=== PATIENT | male | born 1960 | race Caucasian/White ===

== ENCOUNTER 2018-03-29 19:40 | Inpatient (IN) | payer OTHER, SELFPAY ==
[2018-03-29 20:10] VITALS: BP 100/76; PULSE 83; RESP 17; TEMP 36.7; O2SAT 94; BMI 31.7; BMI 31.8
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
--- NOTE | 2018-03-29 21:35 | NURSING ---
RN talked with Lala several times as they claim they are trying to fax the packet to . Fax number was confirmed. Nothing is coming through and Suly, from [facility], is going to another floor to try to refax packet to us.
--- NOTE | 2018-03-29 21:39 | NURSING ---
Dr Gracia paged and gave orders
[2018-03-29 22:00] VITALS: BP 108/72; PULSE 80; RESP 16; TEMP 36.7; O2SAT 95
[2018-03-29] MEDS: oxyCODONE 5 MG Tablet 10 MG PO (23:39)
[2018-03-29] MEDS: MELATONIN 10 MG TABLET PO (23:54)
[2018-03-30] MEDS: oxyCODONE 5 MG Tablet 10 MG PO ×2 (06:20→15:47)
[2018-03-30 07:02] VITALS: O2SAT 95
[2018-03-30 07:17] LABS: Hematocrit 29.5 % (40-54); Hemoglobin 9.1 g/dl (13.0-16.5); Mean Corp Hgb Conc 30.8 g/gl (32-36); Mean Corpuscular Hgb 27.8 pg (27.0-32.0); Mean Corpuscular Volume 90.2 fL (80-94); Mean Platelet Vol. 8.2 fl (6.2-12.0); Platelet Count 578 K/mm3 (150-450); RBC Distribution Width SD 48.2 fl (35.1-43.9); Red Blood Count 3.27 M/mm3 (4.6-6.2); White Blood Count 5.5 K/mm3 (4.4-11.0)
[2018-03-30 07:18] LABS: Anion Gap 11 (5-15); BUN 13 mg/dL (7-18); BUN/Creat Ratio 13.1 RATIO (10-20); Chloride 104 mmol/L (98-107); EST Glomerular Filtration Rate 82 mL/min (>60); Est Glom Filt Rate - Afr Amer 99 mL/min (>60); Estimated Creatinine Clearance 92.11 ml/min; Glucose 98 mg/dL (74-106); Potassium 4.2 mmol/L (3.5-5.1); Sodium Level 140 mmol/L (136-145)
[2018-03-30 07:30] LABS: Scan Indicated on CBC? Y/N NO
[2018-03-30] MEDS: Multivitamins,Ther W-Minerals Tablet 1 TABLET PO (07:52)
[2018-03-30] MEDS: Calcium Carb/Vitamin D 1 TABLET Tablet PO (07:52)
[2018-03-30] MEDS: Atenolol 50 MG Tablet PO (07:52)
[2018-03-30] MEDS: Senna/Docusate Sodium 1 Tablet 2 TABLET PO (07:52)
[2018-03-30] MEDS: Enoxaparin 40 MG/0.4 ML Syringe SC (07:53)
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
[2018-03-30 10:00] VITALS: BP 119/70; PULSE 73; RESP 16; TEMP 36.8; O2SAT 97
--- NOTE | 2018-03-30 11:00 | NURSING ---
This nurse spoke to and called Infectious Disease [employer] and [facility] Doctors offices and delayed appts until patient is discharged due to difficulty getting patient to them.
--- NOTE | 2018-03-30 12:00 | NURSING ---
Called Dr Hurtado's office to see if sutures can come out of right leg other than to stump due to areas red and patient reports the sutures have been in for weeks. Will await call back.
--- NOTE | 2018-03-30 12:42 | NURSING ---
wound photo: right below the knee amputation incisions
--- NOTE | 2018-03-30 12:45 | NURSING ---
wound photo: right knee /lower leg incisions
--- NOTE | 2018-03-30 13:18 | REHABEVAL_ITS ---
Admission Information Status Changes from Prescreening?: No changes Identified Actual Problem List:: Infection, Skin Intergrity, Pain, ALteration in Cmfrt, Alteration in Sleep, Alteration in Nutrition, Mobility Impaired, Self Care Deficit, BP, Hypertension, Ineffect.D/C Plan r/t Psy Potential Problem List:: DVT, Bleeding, Infection, UTI, Aspiration, Falls, Skin Integrity, Depression Risk of Complications DVT: LMWH, YUE Hose, Sequential Compression Device Bleeding: Monitor Lab Values, Nursing to Teach Precautions for anti-coagulation therapy., Wound, if applicable, to be assessed every shift., Stroke patients assessed for lethargy or change in status. Infection: Clinical Staff to Monitor for S/S of infection:, S/S of infection include fever, redness, warmth, etc. Urinary Tract Infection: Monitor for frequency, burning, discomfort, or incontinence., Nursing will obtain urine sample for urinalysis and C&S when ordered. Aspiration: Clinical staff will monitor for coughing, drooling, congestion., Speech will evaluate swallowing and dsyphasia., Nursing will monitor patient swallowing during meals. Falls: Patient will be evaluated for Fall Precautions, Patient will be placed on Fall Precautions as indicated per protocol. Skin Breakdown: Nursing will assess skin daily using assessment tool., Nursing will place on Skin Breakdown Precautions as indicated. Pain: Clinical staff will assess patient's pain level per protocol., Medications will be given, if needed, and the pain level reassessed., Other methods: Massage, distraction, decrease stimulus, etc. used PRN. Plan of Care Patient requires physician specializing in physical medicine and rehab oversight to provide close medical supervision of rehab issues including: Pain Management, Sleep Problems, Bowel and Bladder, Medical and co-morbidity Management, DVT prophylaxis, Rehabilitation Leadership, Coordination of treatment team Patient needs Physical Therapy: For a minimum of 1 hour, At least 5 out of 7 days Patient needs Physical Therapy to improve:: Mobility, Mobility, Mobility, Strengthening, Transfers, Stretching, ROM, Endurance, Stairs, Gait, Balance Patient needs Occupational Therapy: For a minimum of 1 hour, At least 5 out of 7 days Patient needs Occupational Therapy to improve ADL's incl.: Eating, Grooming, Bathing, Dressing, Toileting, Toilet transfers, Community Reintegration, Higher functioning activities, Household tasks, Adaptive Equipment, Splinting, Other activities as determined Patient requires 22/12 Rehabilitation Nursing for: Pain Issues, Identifying and preventing risk factors, Monitoring and reporting current medical conditions, Assisting with ambulation, transfer, and all ADL's, Teaching patients about disease process and medications, Family teaching, Providing safe environment, Bowel and Bladder Issues, Skin integrity, Medication Management Patient needs Lockstitch Shoulder Joiner/ Case Management for: Discharge Planning, Arranging Home Equipment or Services, Family Interventions Patient needs Dietary and Nutrition Services for: Adequate Nutrition, Nutritional Supplements, Nutritional Education Goals Patient will remain: free from falls, or injury at time of discharge. Patient will perform bed mobility at: MOD I level of assist. Patient will complete transfers from bed to chair at: MOD I level of assist. Patient will ambulate: 100 feet, with MOD I assist, with LRD Patient will complete upper body dressing at: MOD I level of assist. Patient will complete lower body dressing at: MOD I level of assist. Patient will complete toileting at: MOD I level of assist. Patient will perform bathing at: MOD I level of assist. Patient will complete grooming at: MOD I level of assist. Patient will complete home management skills at: MOD I level of assist. Patient will achieve: 12 stairs, at MOD I assist Patient will have pain level of: of 3 or less Patient's skin will: remain intact, free from infection. Patient will receive: adequate nutrition. Discharge Planning Pt Prognosis for Sig. Practical Improv. w/in Reasonable Time: Good Anticipated D/C Destination: Home with Outpt Therapy Was Preadmission Assessment Accurate?: Yes
[2018-03-30] MEDS: fentaNYL 25 MCG Patch TRANSDERM. (17:47)
[2018-03-30 20:40] VITALS: BP 134/77; PULSE 79; RESP 16; TEMP 37.2; O2SAT 94
--- NOTE | 2018-03-31 03:19 | NURSING ---
Reviewed and agree with [employer] documentation and FIMs charting.
[2018-03-31] MEDS: oxyCODONE 5 MG Tablet 10 MG PO ×4 (04:14→18:13)
[2018-03-31] MEDS: Calcium Carb/Vitamin D 1 TABLET Tablet PO (07:32)
[2018-03-31] MEDS: Atenolol 50 MG Tablet PO (07:32)
[2018-03-31] MEDS: Multivitamins,Ther W-Minerals Tablet 1 TABLET PO (07:32)
[2018-03-31] MEDS: Enoxaparin 40 MG/0.4 ML Syringe SC (07:32)
[2018-03-31 07:39] VITALS: BP 138/93; PULSE 86; RESP 18; TEMP 36.6; O2SAT 95
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
[2018-03-31] MEDS: Acetaminophen 500 MG Tablet 1000 MG PO ×2 (13:42→20:11)
[2018-03-31 19:00] VITALS: O2SAT 95
[2018-03-31 20:00] VITALS: BP 118/71; PULSE 76; RESP 16; TEMP 36.7; O2SAT 96
[2018-03-31] MEDS: Nystatin Powder 15gm Bottle 1 APPLIC TOPICAL (20:13)
[2018-03-31] MEDS: MELATONIN 10 MG TABLET PO (21:39)
[2018-04-01] MEDS: oxyCODONE 5 MG Tablet 10 MG PO ×5 (01:43→20:56)
--- NOTE | 2018-04-01 02:55 | NURSING ---
REVIEWED AND AGREE WITH FIM AND HANDOFF CHARTING.
[2018-04-01] MEDS: Acetaminophen 500 MG Tablet 1000 MG PO ×3 (05:18→21:12)
[2018-04-01] MEDS: Enoxaparin 40 MG/0.4 ML Syringe SC (05:19)
[2018-04-01] MEDS: Nystatin Powder 15gm Bottle 1 APPLIC TOPICAL ×2 (05:20→20:56)
[2018-04-01 06:30] VITALS: O2SAT 96
[2018-04-01 07:21] VITALS: BP 125/78; PULSE 76; RESP 16; TEMP 36.5; O2SAT 97
[2018-04-01] MEDS: Calcium Carb/Vitamin D 1 TABLET Tablet PO (07:48)
[2018-04-01] MEDS: Multivitamins,Ther W-Minerals Tablet 1 TABLET PO (07:48)
[2018-04-01] MEDS: Atenolol 50 MG Tablet PO (07:48)
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
--- NOTE | 2018-04-01 11:25 | NURSING ---
Wound culture obtained from mid incisional area to right leg stump. area continues to drain light green drainage. mild redness and edema to incision sites noted. sutures intact.
--- NOTE | 2018-04-01 11:34 | CASEMGMT ---
Team meeting held. Patient present as well as patient spouse. No discharge date set at this time. Recommending continued therapy on the Inpatient Rehab Unit. Patient with insurance update due on 04/02/18 and aware that continued stay approval is not guaranteed. Patient plans to discharge to home with spouse. At this time patient would requires a bedside commode, wheelchair with elevating leg rest, and walker. Support given. Plan is to re-team patient next week pending insurance approval. SEN AdairW, SOCIAL DIRECTOR
[2018-04-01 20:49] VITALS: BP 132/68; PULSE 81; RESP 16; TEMP 36.8; O2SAT 94
[2018-04-02] MEDS: oxyCODONE 5 MG Tablet 10 MG PO ×4 (04:52→23:44)
[2018-04-02] MEDS: Acetaminophen 500 MG Tablet 1000 MG PO ×3 (06:26→21:28)
[2018-04-02] MEDS: Enoxaparin 40 MG/0.4 ML Syringe SC (06:27)
[2018-04-02] MEDS: Nystatin Powder 15gm Bottle 1 APPLIC TOPICAL ×2 (06:27→21:29)
[2018-04-02 07:47] VITALS: BP 124/78; PULSE 86; RESP 16; TEMP 36.8; O2SAT 96
[2018-04-02] MEDS: Atenolol 50 MG Tablet PO (10:09)
[2018-04-02] MEDS: Multivitamins,Ther W-Minerals Tablet 1 TABLET PO (10:10)
[2018-04-02] MEDS: Calcium Carb/Vitamin D 1 TABLET Tablet PO (10:13)
[2018-04-02] MEDS: Senna/Docusate Sodium 1 Tablet 2 TABLET PO (10:14)
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
--- NOTE | 2018-04-02 12:06 | CASEMGMT ---
Insurance Clinical information faxed. Pending continued stay approval at this time. Auth#[id number] MEGAN Adair, DRIER TAKE OFF TENDER
--- NOTE | 2018-04-02 14:35 | CT_ITS ---
STUDY: CT RIGHT KNEE WITHOUT CONTRAST REASON FOR EXAM: Male, 57 years old. Right BKA. Redness and drainage. RADIATION DOSAGE (If Supplied By Facility): CTDIvol = ( 15.35 ) mGy, DLP = ( 852.67 ) mGycm TECHNIQUE: Transaxial CT imaging of the knee was performed. Coronal and sagittal images were reformatted. Individualized dose optimization techniques were used for this CT. COMPARISON: None. FINDINGS: There is a metallic plate and screws along the lateral aspect of the femoral shaft. There is a comminuted fracture of a distal femoral shaft extending into the intercondylar notch. Further extension of the condyles cannot be ruled out due to marked streak artifact from multiple metallic screws. There is a cystic focus in the posterior aspect of the lateral femoral condyle which may represent a cyst or an focus of osteomyelitis. The proximal tibia appears intact. There is a tunnel extending from the anterior tibial plateau angling posteriorly through the shaft. There are multiple crossing lucencies suggesting the root of the prior medullary brittany. There is evidence of a BKA with marked sclerosis of the surrounding bone and calcifications within the surrounding soft tissues. There is no evidence of bony disruption to suggest osteomyelitis. The distal tibial fragment appears intact and without evidence of destructive bone changes. There is moderate to marked arthrosis of the patellofemoral joint. The patella appears intact. No obvious joint effusion. The surrounding musculature appears grossly normal however streak artifact limits evaluation of the lower thigh. There is evidence of soft tissue edema over the lateral aspect of the lower leg and knee. The soft tissues adjacent to the inferior aspect of the tibia are somewhat indistinct. There appears to be a abscess with enhancing goodwin along the post coronal lateral aspect of the calf which extends to the skin surface. This is best seen on image [address]/Extremity Lower WITH Contrast IMPRESSION: 1. Evidence of BKA. There is associated soft tissue swelling with what appears to be a small abscess extending to posterolateral skin surface. 2. Comminuted fracture of the distal femur with metallic plate and screws. 3. Diffuse soft tissue swelling of the lower leg. Electronically Signed: Edward Goldberg DO at 18:01 EDT Tel [phone], Service support ,
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
--- NOTE | 2018-04-02 14:56 | CASEMGMT ---
Insurance Continued stay approved with next update due on 04/09/18. Auth#[id number] MEGAN [employer], [employer]
[2018-04-02] MEDS: fentaNYL 25 MCG Patch TRANSDERM. (17:48)
--- NOTE | 2018-04-02 18:25 | NURSING ---
Young ID tel. stated that he is aware of results from CT, this RN reviewed with doctor what plan of actions is for pt in regards to results. NNO's monitor pt.
[2018-04-02 21:23] VITALS: BP 147/82; PULSE 86; RESP 18; TEMP 36.6; O2SAT 94
[2018-04-03] MEDS: Nystatin Powder 15gm Bottle 1 APPLIC TOPICAL ×2 (06:13→20:51)
[2018-04-03] MEDS: Acetaminophen 500 MG Tablet 1000 MG PO ×3 (06:13→23:16)
[2018-04-03] MEDS: Enoxaparin 40 MG/0.4 ML Syringe SC (06:13)
[2018-04-03] MEDS: oxyCODONE 5 MG Tablet 10 MG PO ×3 (06:21→20:59)
[2018-04-03] MEDS: 0.9% NaCl Peripheral Flush Adult/Peds IV ×5 (06:59→21:47)
[2018-04-03 07:33] VITALS: BP 135/90; PULSE 91; RESP 17; TEMP 36.9; O2SAT 95
[2018-04-03] MEDS: Calcium Carb/Vitamin D 1 TABLET Tablet PO (08:03)
[2018-04-03] MEDS: Escitalopram Oxalate 20 MG Tablet PO (08:03)
[2018-04-03] MEDS: Multivitamins,Ther W-Minerals Tablet 1 TABLET PO (08:03)
[2018-04-03] MEDS: Atenolol 50 MG Tablet PO (08:03)
[2018-04-03 08:45] LABS: Absolute Lymphocyte Count 1.11 X10^3/ul (0.83-4.51); Absolute Neutrophil Count 2.8 X10^3/uL (2.0-7.7); Basophil# 0.07 X10^3/uL; Basophil% 1.5 % (0-1); Eosinophil# 0.11 X10^3/uL; Eosinophils% 2.4 % (0-5); Hematocrit 33.6 % (40-54); Hemoglobin 10.8 g/dl (13.0-16.5); Lymphocyte # 1.11 X10^3/ul (4.0); Lymphocyte % 23.9 % (19-41); Mean Corp Hgb Conc 32.1 g/gl (32-36); Mean Corpuscular Hgb 27.6 pg (27.0-32.0); Mean Corpuscular Volume 85.9 fL (80-94); Mean Platelet Vol. 9.5 fl (6.2-12.0); Monocyte# 0.53 X10^3/uL; Monocyte% 11.4 % (0-10); Neutrophil % 60.4 % (47-70); Platelet Count 227 K/mm3 (150-450); RBC Distribution Width CV 15.4 % (11.6-14.6); RBC Distribution Width SD 47.7 fl (35.1-43.9); Red Blood Count 3.91 M/mm3 (4.6-6.2); White Blood Count 4.6 K/mm3 (4.4-11.0)
[2018-04-03 08:46] LABS: POSITIVE COUNT NO; POSITIVE DIFFERENTIAL NO; POSITIVE MORPHOLOGY NO
[2018-04-03 20:00] VITALS: BP 133/81; PULSE 71; RESP 16; TEMP 37.2; O2SAT 96
[2018-04-03] MEDS: Senna/Docusate Sodium 1 Tablet 2 TABLET PO (20:50)
[2018-04-03 22:00] VITALS: PULSE 77; RESP 16; O2SAT 96
[2018-04-04] MEDS: oxyCODONE 5 MG Tablet 10 MG PO ×5 (05:15→22:04)
[2018-04-04] MEDS: 0.9% NaCl Peripheral Flush Adult/Peds IV ×5 (05:16→22:05)
[2018-04-04] MEDS: Enoxaparin 40 MG/0.4 ML Syringe SC (05:16)
[2018-04-04] MEDS: Nystatin Powder 15gm Bottle 1 APPLIC TOPICAL ×2 (05:36→21:07)
[2018-04-04 06:50] LABS: Absolute Lymphocyte Count 1.12 X10^3/ul (0.83-4.51); Absolute Neutrophil Count 2.8 X10^3/uL (2.0-7.7); Basophil% 2.2 % (0-1); Eosinophil# 0.17 X10^3/uL; Eosinophils% 3.7 % (0-5); Hematocrit 33.8 % (40-54); Hemoglobin 10.5 g/dl (13.0-16.5); Lymphocyte # 1.12 X10^3/ul (4.0); Lymphocyte % 24.3 % (19-41); Mean Corp Hgb Conc 31.1 g/gl (32-36); Mean Corpuscular Hgb 27.6 pg (27.0-32.0); Mean Corpuscular Volume 88.9 fL (80-94); Mean Platelet Vol. 8.2 fl (6.2-12.0); Monocyte% 8.7 % (0-10); Neutrophil % 60.7 % (47-70); Platelet Count 495 K/mm3 (150-450); RBC Distribution Width CV 15.3 % (11.6-14.6); RBC Distribution Width SD 49.2 fl (35.1-43.9); White Blood Count 4.6 K/mm3 (4.4-11.0)
[2018-04-04 06:52] LABS: POSITIVE COUNT NO; POSITIVE DIFFERENTIAL NO; POSITIVE MORPHOLOGY NO
[2018-04-04] MEDS: Acetaminophen 500 MG Tablet 1000 MG PO ×3 (06:54→21:08)
[2018-04-04 07:09] VITALS: BP 144/84; PULSE 84; RESP 16; TEMP 36.6; O2SAT 92
[2018-04-04] MEDS: Escitalopram Oxalate 20 MG Tablet PO (08:11)
[2018-04-04] MEDS: Atenolol 50 MG Tablet PO (08:11)
[2018-04-04] MEDS: Calcium Carb/Vitamin D 1 TABLET Tablet PO (08:11)
[2018-04-04] MEDS: Multivitamins,Ther W-Minerals Tablet 1 TABLET PO (08:12)
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
[2018-04-04 19:54] VITALS: BP 129/66; PULSE 83; RESP 16; TEMP 36.8; O2SAT 95
[2018-04-05] MEDS: oxyCODONE 5 MG Tablet 10 MG PO ×2 (04:43→09:24)
[2018-04-05] MEDS: Nystatin Powder 15gm Bottle 1 APPLIC TOPICAL ×2 (04:47→22:23)
[2018-04-05] MEDS: 0.9% NaCl Peripheral Flush Adult/Peds IV (05:51)
[2018-04-05] MEDS: Acetaminophen 500 MG Tablet 1000 MG PO ×3 (05:51→22:22)
[2018-04-05] MEDS: Enoxaparin 40 MG/0.4 ML Syringe SC (05:52)
--- NOTE | 2018-04-05 06:23 | NURSING ---
Dressing removed, incision cleansed with soap and water. Dime sized red/brownish, dry drainage at distal end of leg. Gauze pad replaced, Kerlix and BEATRIZ wrap applied. Pt tolerated well.
[2018-04-05 06:48] LABS: Absolute Lymphocyte Count 0.88 X10^3/ul (0.83-4.51); Absolute Neutrophil Count 2.8 X10^3/uL (2.0-7.7); Basophil% 2.2 % (0-1); Eosinophil# 0.18 X10^3/uL; Hematocrit 31.5 % (40-54); Hemoglobin 9.7 g/dl (13.0-16.5); Lymphocyte # 0.88 X10^3/ul (4.0); Lymphocyte % 19.8 % (19-41); Mean Corp Hgb Conc 30.8 g/gl (32-36); Mean Corpuscular Hgb 27.5 pg (27.0-32.0); Mean Corpuscular Volume 89.2 fL (80-94); Monocyte# 0.44 X10^3/uL; Monocyte% 9.9 % (0-10); Neutrophil # 2.84 X10^3/uL (2.7-7.7); Neutrophil % 63.9 % (47-70); Platelet Count 335 K/mm3 (150-450); RBC Distribution Width CV 15.2 % (11.6-14.6); RBC Distribution Width SD 48.9 fl (35.1-43.9); Red Blood Count 3.53 M/mm3 (4.6-6.2); White Blood Count 4.5 K/mm3 (4.4-11.0)
[2018-04-05 06:55] LABS: POSITIVE COUNT NO; POSITIVE DIFFERENTIAL NO; POSITIVE MORPHOLOGY NO
[2018-04-05 07:48] VITALS: BP 149/93; PULSE 87; RESP 16; TEMP 36.6; O2SAT 96
[2018-04-05] MEDS: Calcium Carb/Vitamin D 1 TABLET Tablet PO (08:05)
[2018-04-05] MEDS: Multivitamins,Ther W-Minerals Tablet 1 TABLET PO (08:05)
[2018-04-05] MEDS: Escitalopram Oxalate 20 MG Tablet PO (08:05)
[2018-04-05] MEDS: Atenolol 50 MG Tablet PO (08:05)
[2018-04-05] MEDS: Lisinopril 5 MG Tablet 15 MG PO (10:38)
[2018-04-05] MEDS: hydroCHLOROthiazide 12.5mg 37.5 MG PO (10:38)
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
[2018-04-05] MEDS: Gabapentin 100 MG Capsule PO ×2 (13:47→17:34)
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
[2018-04-05] MEDS: fentaNYL 25 MCG Patch TRANSDERM. (17:33)
[2018-04-05 22:00] VITALS: BP 140/89; PULSE 76; RESP 16; TEMP 36.7; O2SAT 95
[2018-04-05] MEDS: Ciprofloxacin 500 MG Tablet PO (22:22)
--- NOTE | 2018-04-05 22:45 | NURSING ---
pt c/o nausea and requested zofran. Pt declined saltine crackers or soda. Hospitalist, Dr Lennon, paged. N/O for Zofran 4mg PO Q8H/PRN. Dr. Lennon called for conflict alert and override provided by Dr. Lennon.
[2018-04-05] MEDS: Ondansetron ODT 4 MG Tablet PO (23:03)
--- NOTE | 2018-04-06 04:17 | NURSING ---
Reviewed and agree with CHILD THERAPIST documentation and FIMs charting.
[2018-04-06] MEDS: oxyCODONE 5 MG Tablet 10 MG PO (06:23)
[2018-04-06] MEDS: Acetaminophen 500 MG Tablet 1000 MG PO ×3 (06:24→21:29)
[2018-04-06] MEDS: Enoxaparin 40 MG/0.4 ML Syringe SC (06:25)
[2018-04-06] MEDS: Nystatin Powder 15gm Bottle 1 APPLIC TOPICAL (06:26)
[2018-04-06] MEDS: hydroCHLOROthiazide 12.5mg 37.5 MG PO (07:43)
[2018-04-06] MEDS: Atenolol 50 MG Tablet PO (07:43)
[2018-04-06] MEDS: Gabapentin 100 MG Capsule PO ×3 (07:43→16:58)
[2018-04-06] MEDS: Calcium Carb/Vitamin D 1 TABLET Tablet PO (07:43)
[2018-04-06] MEDS: Lisinopril 5 MG Tablet 15 MG PO (07:43)
[2018-04-06] MEDS: Escitalopram Oxalate 20 MG Tablet PO (07:44)
[2018-04-06] MEDS: Multivitamins,Ther W-Minerals Tablet 1 TABLET PO (07:44)
[2018-04-06 08:06] VITALS: BP 133/68; PULSE 91; RESP 16; TEMP 36.9; O2SAT 91
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
[2018-04-06] MEDS: Ciprofloxacin 500 MG Tablet PO ×2 (10:56→21:29)
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
--- NOTE | 2018-04-06 12:01 | NURSING ---
wound photo: right stump
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
[2018-04-06 20:17] VITALS: BP 123/73; PULSE 74; RESP 18; TEMP 36.8; O2SAT 93
--- NOTE | 2018-04-07 00:33 | NURSING ---
IV discontinued. IV removed intact and pt tolerated well.
[2018-04-07] MEDS: oxyCODONE 5 MG Tablet 10 MG PO ×4 (04:44→20:13)
[2018-04-07] MEDS: Acetaminophen 500 MG Tablet 1000 MG PO ×3 (06:25→21:22)
[2018-04-07] MEDS: Enoxaparin 40 MG/0.4 ML Syringe SC (06:25)
[2018-04-07] MEDS: Nystatin Powder 15gm Bottle 1 APPLIC TOPICAL ×2 (06:30→21:23)
[2018-04-07] MEDS: Calcium Carb/Vitamin D 1 TABLET Tablet PO (08:19)
[2018-04-07] MEDS: Lisinopril 5 MG Tablet 15 MG PO (08:20)
[2018-04-07] MEDS: hydroCHLOROthiazide 12.5mg 37.5 MG PO (08:20)
[2018-04-07] MEDS: Escitalopram Oxalate 20 MG Tablet PO (08:20)
[2018-04-07] MEDS: Atenolol 50 MG Tablet PO (08:20)
[2018-04-07] MEDS: Multivitamins,Ther W-Minerals Tablet 1 TABLET PO (08:21)
[2018-04-07] MEDS: Gabapentin 100 MG Capsule PO ×3 (08:21→17:23)
[2018-04-07] MEDS: Ciprofloxacin 500 MG Tablet PO ×2 (09:32→21:23)
[2018-04-07 09:51] VITALS: BP 118/82; PULSE 93; RESP 16; TEMP 36.6; O2SAT 95
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
[2018-04-07 19:37] VITALS: BP 120/70; PULSE 78; RESP 16; TEMP 37.2; O2SAT 94
[2018-04-08] MEDS: oxyCODONE 5 MG Tablet 10 MG PO ×3 (05:51→18:07)
[2018-04-08] MEDS: Enoxaparin 40 MG/0.4 ML Syringe SC (05:52)
[2018-04-08] MEDS: Nystatin Powder 15gm Bottle 1 APPLIC TOPICAL ×2 (05:52→21:04)
[2018-04-08] MEDS: Acetaminophen 500 MG Tablet 1000 MG PO ×3 (05:52→21:03)
[2018-04-08 07:00] VITALS: BP 126/81; PULSE 79; RESP 20; TEMP 36.7; O2SAT 95
[2018-04-08] MEDS: Lisinopril 5 MG Tablet 15 MG PO (08:15)
[2018-04-08] MEDS: Multivitamins,Ther W-Minerals Tablet 1 TABLET PO (08:16)
[2018-04-08] MEDS: Atenolol 50 MG Tablet PO (08:16)
[2018-04-08] MEDS: hydroCHLOROthiazide 12.5mg 37.5 MG PO (08:16)
[2018-04-08] MEDS: Escitalopram Oxalate 20 MG Tablet PO (08:16)
[2018-04-08] MEDS: Gabapentin 100 MG Capsule PO ×3 (08:16→18:07)
[2018-04-08] MEDS: Ciprofloxacin 500 MG Tablet PO ×2 (10:14→21:04)
[2018-04-08] MEDS: Calcium Carb/Vitamin D 1 TABLET Tablet PO (10:14)
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
--- NOTE | 2018-04-08 11:46 | CASEMGMT ---
Team meeting held. Patient present as well as patient spouse. No discharge date set at this time. Patient with insurance update due on 04/09/18, patient aware that continued stay approval is not guaranteed and that patient .
--- NOTE | 2018-04-08 11:50 | CASEMGMT ---
Team meeting held. Patient present as well as patient spouse. No discharge date set at this time. Patient to continue with further care and treatment on the Inpatient Rehab Unit. Patient with insurance update due on 04/09/18 and aware that continued stay approval is not guaranteed. Patient aware that there is a possibility that patient will discharge on 04/10/18 due to discontinued coverage by insurance. Patient reporting to want to continue with stay for another 1-2 weeks. Team reporting to believe that patient is ready and able to return home. Patient wanting to continue with stay due to team working patient out well. Patient is agreeable to home health services at time of discharge for physical, occupational, and assisted. Nursing aware to start teaching with spouse on wound care. Patient requesting for home health care to be set up through [facility] ([facility]). If discharge date is set for 04/10/18, patient plans to discharge [id number] with a first floor set up and family is able to transport patient to home. Will continue to follow, pending further approval by insurance. [facility] This manager social responsibility making referral for physical, occupational, and assisted. Orders faxed. Melanie aware that no discharge date has been set at this time, will notify Melanie when discharge date is set. Patient has equipment already set up through [facility] for Bariatric standard walker, wheelchair, and bariatric bedside commode, will notify [facility] when discharge date is set in order to be able to deliver equipment. Will continue to follow. Elena Bradley, [employer]GR[employer]HER, BLUEPRINT ENGINEER
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
[2018-04-08] MEDS: fentaNYL 25 MCG Patch TRANSDERM. (18:06)
[2018-04-08 20:56] VITALS: BP 98/73; PULSE 97; RESP 18; TEMP 36.6; O2SAT 94
[2018-04-08] MEDS: Senna/Docusate Sodium 1 Tablet 2 TABLET PO (21:04)
[2018-04-09] MEDS: oxyCODONE 5 MG Tablet 10 MG PO ×5 (00:41→19:10)
[2018-04-09] MEDS: Acetaminophen 500 MG Tablet 1000 MG PO ×3 (05:28→21:40)
[2018-04-09] MEDS: Enoxaparin 40 MG/0.4 ML Syringe SC (05:28)
[2018-04-09] MEDS: Nystatin Powder 15gm Bottle 1 APPLIC TOPICAL ×2 (05:28→21:39)
[2018-04-09 07:00] VITALS: BP 140/83; PULSE 100; RESP 20; TEMP 36.6; O2SAT 95
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
[2018-04-09] MEDS: Senna/Docusate Sodium 1 Tablet 2 TABLET PO (09:11)
[2018-04-09] MEDS: Atenolol 50 MG Tablet PO (09:11)
[2018-04-09] MEDS: Lisinopril 5 MG Tablet 15 MG PO (09:11)
[2018-04-09] MEDS: Multivitamins,Ther W-Minerals Tablet 1 TABLET PO (09:12)
[2018-04-09] MEDS: Escitalopram Oxalate 20 MG Tablet PO (09:12)
[2018-04-09] MEDS: hydroCHLOROthiazide 12.5mg 37.5 MG PO (09:12)
[2018-04-09] MEDS: Gabapentin 100 MG Capsule PO ×3 (09:12→17:36)
[2018-04-09] MEDS: Calcium Carb/Vitamin D 1 TABLET Tablet PO (09:12)
[2018-04-09] MEDS: Ciprofloxacin 500 MG Tablet PO ×2 (09:12→21:41)
--- NOTE | 2018-04-09 12:53 | CASEMGMT ---
Insurance clinical updates sent via secure website. AUth # [id number] MEGAN Clemente
--- NOTE | 2018-04-09 14:30 | NURSING ---
Pt. at this time is declining the right to see a psychologist as an out pt.
[2018-04-09 19:16] VITALS: BP 112/64; PULSE 74; RESP 16; TEMP 37; O2SAT 96
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
[2018-04-10] MEDS: Enoxaparin 40 MG/0.4 ML Syringe SC (05:41)
[2018-04-10] MEDS: Nystatin Powder 15gm Bottle 1 APPLIC TOPICAL (05:42)
[2018-04-10] MEDS: Acetaminophen 500 MG Tablet 1000 MG PO ×2 (05:42→13:19)
[2018-04-10] MEDS: oxyCODONE 5 MG Tablet 10 MG PO ×2 (06:05→10:03)
[2018-04-10 07:47] VITALS: BP 139/82; PULSE 76; RESP 16; TEMP 36.4; O2SAT 95
[2018-04-10] MEDS: Lisinopril 5 MG Tablet 15 MG PO (09:18)
[2018-04-10] MEDS: Calcium Carb/Vitamin D 1 TABLET Tablet PO (09:18)
[2018-04-10] MEDS: Ciprofloxacin 500 MG Tablet PO (09:18)
[2018-04-10] MEDS: Atenolol 50 MG Tablet PO (09:18)
[2018-04-10] MEDS: Multivitamins,Ther W-Minerals Tablet 1 TABLET PO (09:19)
[2018-04-10] MEDS: Gabapentin 100 MG Capsule PO ×2 (09:19→11:39)
[2018-04-10] MEDS: hydroCHLOROthiazide 12.5mg 37.5 MG PO (09:19)
[2018-04-10] MEDS: Escitalopram Oxalate 20 MG Tablet PO (09:19)
--- NOTE | 2018-04-10 09:41 | NURSING ---
demonstrated proper cleansing of right stump, dressing and wrapping with sindi wrap. denies any questions.
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
--- NOTE | 2018-04-10 11:58 | NURSING ---
patient's insurance denied further coverage for inpatient rehab, a phone call received this am from Kayley Figueroa [employer] adjuster. patient will be discharged today. dr Rios here to see patient. spoke with Odalis from [facility] home health and updated of discharge date. spoke with [place] [facility] [place], awaiting for return call back regarding delivery of DME today. patient and verbalized understanding. patient is supervised with all needs and transfers with walker. both patient and verbalized understanding of discharge instructions and appointments.
--- NOTE | 2018-04-10 13:13 | NURSING ---
Mason from [facility] returned call and will deliver dme today.
--- NOTE | 2018-04-10 13:45 | NURSING ---
spoke with cleopatra from [facility] [place] wheelchair [place] was not received to [facility]. new prescription sent to [facility] with therapy note stating why wheelchair and walker is necessary for this patient. prescription and therapy note faced.
--- NOTE | 2018-04-10 13:48 | NURSING ---
patient discharged with to mother in laws house.
--- NOTE | 2018-04-12 12:02 | CASEMGMT ---
Insurance/ Social Work Pt cut by insurance with LCD 04/09/18 and D/C 04/10/18. Pt agreeable to d/c home. Auth # [id number] Phone call to Melanie in [facility] and services to begin 04/13/18. Spoke with [place] and [facility] [place]. Equipment was delivered on day of D/C. Pt voicing concerns with equipment. Alba at [facility] notified and will followup with pt. Pt aware to expect a call from [facility] MEGAN Clemente
== END 2018-04-10 13:50 | disposition home health service (06) | DRG 560 ==
PROVIDERS: Internal Medicine Infectious Disease; Admitting Provider Psychiatry & Neurology Neurology; Family Provider Family Medicine; PCP Family Medicine; Visit Provider Internal Medicine
DX: Z47.81 Encounter for orthopedic aftercare following surgical amputation (principal); D62 Acute posthemorrhagic anemia; T87.43 Infection of amputation stump, right lower extremity; Z89.511 Acquired absence of right leg below knee; I10 Essential (primary) hypertension; V23.9XXD Unspecified motorcycle rider injured in collision with car, pick-up truck or van in traffic accident, subsequent encounter; F32.9 Major depressive disorder, single episode, unspecified; B96.5 Pseudomonas (aeruginosa) (mallei) (pseudomallei) as the cause of diseases classified elsewhere
CPT/HCPCS: 36415; 73701; 80048; 85025; 85027; 87070; 87075; 87077; 87184; 87186; 87205; 97110; 97116; 97162; 97166; 97530; 97535; 97802; J2185; Q9967; A4216

== ENCOUNTER → 2018-04-21 16:35 | Outpatient (CLI) | payer OTHER, SELFPAY ==
[2018-03-29 20:10] VITALS: BMI 31.7
[2018-04-21 18:45] LABS: Absolute Lymphocyte Count 1.87 X10^3/ul (0.83-4.51); Absolute Neutrophil Count 3.4 X10^3/uL (2.0-7.7); Basophil# 0.14 X10^3/uL; Basophil% 2.2 % (0-1); Eosinophil# 0.32 X10^3/uL; Hematocrit 37.8 % (40-54); Hemoglobin 11.8 g/dl (13.0-16.5); Immature Platelet Fraction 0.6 % (1.0-7.9); Lymphocyte # 1.87 X10^3/ul (4.0); Lymphocyte % 29.3 % (19-41); Mean Corp Hgb Conc 31.2 g/gl (32-36); Mean Corpuscular Hgb 27.6 pg (27.0-32.0); Mean Corpuscular Volume 88.5 fL (80-94); Mean Platelet Vol. 8.7 fl (6.2-12.0); Monocyte# 0.68 X10^3/uL; Monocyte% 10.7 % (0-10); Neutrophil # 3.36 X10^3/uL (2.7-7.7); Neutrophil % 52.6 % (47-70); Platelet Count 377 K/mm3 (150-450); RBC Distribution Width CV 15.4 % (11.6-14.6); RBC Distribution Width SD 49.3 fl (35.1-43.9); Red Blood Count 4.27 M/mm3 (4.6-6.2); Reticulocyte Count 1.59 % (0.5-1.5); White Blood Count 6.4 K/mm3 (4.4-11.0)
[2018-04-21 18:59] LABS: POSITIVE COUNT NO; POSITIVE DIFFERENTIAL NO; POSITIVE MORPHOLOGY NO
== END ==
PROVIDERS: Family Provider Family Medicine; PCP Family Medicine; Visit Provider Family Medicine
DX: D64.9 Anemia, unspecified (principal)
CPT/HCPCS: 36415; 85025; 85045